=== PATIENT | male | born 1985 | race Caucasian/White ===

== ENCOUNTER 2019-07-22 22:35 | Emergency (ER) | payer BC, OTHER ==
[~2019-07-22] VITALS: Ht 167.6 cm; Wt 90.7 kg
[2019-07-23 03:09] VITALS: BP 123/70
== END 2019-07-23 03:25 | disposition home or self-care (01) ==
LOC: ER 22:35
DX: S61.412A Laceration without foreign body of left hand, initial encounter (principal); W26.0XXA Contact with knife, initial encounter; Y92.89 Other specified places as the place of occurrence of the external cause; Y93.89 Activity, other specified; Y99.8 Other external cause status